=== PATIENT | male | born 1975 | race Caucasian/White ===

== ENCOUNTER 2021-01-15 23:43 | Emergency (ER) | payer OTHER ==
[2021-01-16 00:15] VITALS: BMI 27.8
[2021-01-16] MEDS ORDERED: DIPHTH,PERTUSS(ACELL),TET 0.5 ML DISP.SYRIN IM ONE ×2 (00:23→00:25)
[2021-01-16 00:30] VITALS: BP 134/95; PULSE 74; TEMP 97.7
== END 2021-01-16 00:38 | disposition home or self-care (01) ==
LOC: EDSEX 23:43 → FER 23:43
PROC: 3E0234Z Introduction of Serum, Toxoid and Vaccine into Muscle, Percutaneous Approach (ICD-10-PCS; principal; 2021-01-15)
DX: S01.81XA Laceration without foreign body of other part of head, initial encounter (principal); W22.8XXA Striking against or struck by other objects, initial encounter; Y93.01 Activity, walking, marching and hiking
CPT/HCPCS: 90715; 99284-25

== ENCOUNTER 2022-06-29 07:29 | Day surgery (SDC) | payer OTHER ==
[2022-06-24 13:19] VITALS: BMI 28.6
[2022-06-29] MEDS ORDERED: LIDOCAINE HCL/PF 2% SDV 5ML VIAL ONE (07:34)
[2022-06-29] MEDS ORDERED: PROPOFOL 120 ML ONE (07:35)
[2022-06-29 09:15] VITALS: BP 119/76; PULSE 68; RESP 20; TEMP 98
== END 2022-06-29 09:28 | disposition home or self-care (01) ==
LOC: FASU-ENDO 07:29
PROVIDERS: ATTEND Internal Medicine Gastroenterology
PROC: 0DB98ZX Excision of Duodenum, Via Natural or Artificial Opening Endoscopic, Diagnostic (ICD-10-PCS; 2022-06-29)
PROC: 0DB78ZX Excision of Stomach, Pylorus, Via Natural or Artificial Opening Endoscopic, Diagnostic (ICD-10-PCS; 2022-06-29)
PROC: 0D7 Gastrointestinal System, Dilation (ICD-10-PCS; 2022-06-29)
PROC: 0D7 Gastrointestinal System, Dilation (ICD-10-PCS; 2022-06-29)
PROC: 0D7 Gastrointestinal System, Dilation (ICD-10-PCS; 2022-06-29)
PROC: 0D7 Gastrointestinal System, Dilation (ICD-10-PCS; 2022-06-29)
PROC: 0DJD8ZZ Inspection of Lower Intestinal Tract, Via Natural or Artificial Opening Endoscopic (ICD-10-PCS; principal; 2022-06-29 08:27)
DX: Z12.11 Encounter for screening for malignant neoplasm of colon (principal); K29.70 Gastritis, unspecified, without bleeding; K21.00 Gastro-esophageal reflux disease with esophagitis, without bleeding
CPT/HCPCS: 88305-TC; 88342-TC